=== PATIENT | male | born 1990 | race African-American/Black ===

== ENCOUNTER 2020-05-21 09:21 | Emergency (ER) | payer MEDICAID ==
[~2020-05-21] VITALS: Ht 177.8 cm; Wt 81.8 kg
[2020-05-21] MEDS ORDERED: LISI-660 PO (09:27)
[2020-05-21] MEDS ORDERED: PENICILLIN G BENZATHINE LA 2,400,000 UNITS/4 ML SYRINGE IM ONE (10:15)
[2020-05-21 10:18] LABS: APPEARANCE,URINE CLEAR (CLEAR); BACTERIA,URINE None Seen /HPF (None Seen); BILIRUBIN,URINE NEGATIVE (NEGATIVE); GLUCOSE, URINE (UA) NEGATIVE (NEGATIVE); KETONES,URINE NEGATIVE (NEGATIVE); LEUKOCYTE ESTERASE ,URINE NEGATIVE (NEGATIVE); NITRATE,URINE NEGATIVE (NEGATIVE); OCCULT BLOOD,URINE NEGATIVE (NEGATIVE); PH,URINE 7.5 (5.0-8.0); PROTEIN,URINE NEGATIVE (NEGATIVE); RBC,URINE None Seen /HPF (0-2); UROBILINOGEN,URINE 0.2 mg/dL (<=1.0); WBC,URINE None Seen /HPF (0-5)
[2020-05-21 11:03] VITALS: BP 134/95
== END 2020-05-21 11:26 | disposition home or self-care (01) ==
LOC: EMS 09:21
DX: R30.0 Dysuria (principal); I10 Essential (primary) hypertension; F17.210 Nicotine dependence, cigarettes, uncomplicated; Z20.3 Contact with and (suspected) exposure to rabies; Z79.899 Other long term (current) drug therapy
CPT/HCPCS: 36415; 81001; 86592; 87491; 87591; 96372; 99283; J0561

== ENCOUNTER 2020-06-04 09:21 | Emergency (ER) | payer MEDICAID ==
[~2020-06-04] VITALS: Ht 175.3 cm; Wt 95.5 kg
[~2020-06-04 09:21] MED LIST: LISI-660 PO
[2020-06-04 09:26] VITALS: BP 134/72
[2020-06-04] MEDS ORDERED: CefTRIAXone SODIUM 1 GM/VIAL IM ONE (11:00)
[2020-06-04] MEDS ORDERED: LIDOCAINE/PF 1% 2 ML VIAL IM ONE (11:00)
[2020-06-04] MEDS ORDERED: AZITHROMYCIN 500 MG TABLET PO ONE (11:00)
== END 2020-06-04 11:37 | disposition home or self-care (01) ==
LOC: EMS 09:23
DX: N34.2 Other urethritis (principal); F17.210 Nicotine dependence, cigarettes, uncomplicated; I10 Essential (primary) hypertension; Z79.899 Other long term (current) drug therapy
CPT/HCPCS: 96372; 99283; J0696; J3490